=== PATIENT | female | born 1980 | race Caucasian/White ===

== ENCOUNTER 2017-03-12 10:30 | Emergency (ER) | payer OTHER ==
[~2017-03-12] VITALS: Ht 149.9 cm; Wt 67.3 kg
[2017-03-12 10:34] VITALS: Ht 149.9 cm; Wt 67.3 kg
[2017-03-12 11:32] VITALS: BP 116/74
== END 2017-03-12 11:32 | disposition home or self-care (01) ==
LOC: ED 10:30
DX: J06.9 Acute upper respiratory infection, unspecified (principal); Z90.49 Acquired absence of other specified parts of digestive tract